=== PATIENT | male | born 1995 | race Hispanic/Latino ===

== ENCOUNTER 2023-03-18 06:10 | Day surgery (SDC) | payer OTHER ==
[2023-03-18] VITALS (11 sets, daily range): BP systolic 104–140; BP diastolic 51–87; PULSE 80–95; RESP 10–17
[~2023-03-18] VITALS: Ht 149.9 cm; Wt 115.6 kg
[~2023-03-18 06:10] MED LIST: ALBU90AE2 IH; FLUT1BLS3 IH; LEVO25TA9 PO; LORA10TA7 PO; ROSU20TA73 PO; VITAD50000 PO
[2023-03-18] MEDS ORDERED: 0.9%NACL 1000ML 1,000 ML IV ONE ×4 (06:38→09:17)
[2023-03-18] MEDS ORDERED: PROPOFOL 10 MG/ML 20ML VIAL IV ONE ×2 (08:00→08:08)
[2023-03-18] MEDS ORDERED: ONDANSETRON 4MG INJ ONE (08:41)
== END 2023-03-18 09:30 | disposition home or self-care (01) ==
LOC: ENDO 06:10 → DAH 06:10 → ENDO 09:30
PROVIDERS: ATTEND Internal Medicine Gastroenterology
DX: R13.10 Dysphagia, unspecified (principal); K22.2 Esophageal obstruction; K29.50 Unspecified chronic gastritis without bleeding; E11.9 Type 2 diabetes mellitus without complications; F41.9 Anxiety disorder, unspecified; F32.9 Major depressive disorder, single episode, unspecified; K31.A0 Gastric intestinal metaplasia, unspecified; E03.9 Hypothyroidism, unspecified; J45.909 Unspecified asthma, uncomplicated; I10 Essential (primary) hypertension; E66.9 Obesity, unspecified; Z68.43 Body mass index [BMI] 50.0-59.9, adult; Z79.899 Other long term (current) drug therapy; Z98.890 Other specified postprocedural states
CPT/HCPCS: 43239; 43248; J7030 ×5; J2704 ×2; J2405; A4620; A4215 ×2; A4223; A4657; A7002; A4222; A4221; A4663; A4606; J3490